=== PATIENT | male | born 1980 | race Caucasian/White ===

== ENCOUNTER → 2016-05-03 | Outpatient (REF) | LOC: ZLAB.WCH 12:00 | DX: Z01.89 Encounter for other specified special examinations (principal) ==

== ENCOUNTER → 2017-01-20 | Outpatient (REF) ==
[2017-01-20 16:34] LABS: CHLAMYDIA/TRACH by PCR Female NOT DETECTED; NEISSERIA GON by PCR Female NOT DETECTED
== END ==
LOC: ZLAB.WCH 14:43
PROVIDERS: Nurse Practitioner Family
DX: Z01.89 Encounter for other specified special examinations (principal)